=== PATIENT | male | born 1985 | race Caucasian/White ===

== ENCOUNTER 2016-10-15 16:00 | Outpatient (RCR) | payer OTHER ==
[~2016-10-15 16:00] MED LIST: ADVI200C5 PO; ALBU17IN2 INH; AUGM875T27 PO; CATA0.1T PO; OCEA0.654; TRAZ300T2 PO; WELLTAB40 PO
== END 2016-11-05 | disposition home or self-care (01) ==
LOC: M OUTALCOH 16:00
PROVIDERS: ATTEND Psychiatry & Neurology Psychiatry
DX: F11.20 Opioid dependence, uncomplicated (principal); F12.20 Cannabis dependence, uncomplicated; F17.200 Nicotine dependence, unspecified, uncomplicated

== ENCOUNTER 2020-07-02 11:45 | Emergency (ER) | payer MEDICAID, OTHER, SELFPAY ==
[~2020-07-02] VITALS: Ht 182.9 cm; Wt 90.6 kg
[2020-07-02 11:45] VITALS: BP 113/73
[~2020-07-02 11:45] MED LIST changes: -AUGM875T27 PO; +AUGM875T28 PO
[2020-07-02] MEDS ORDERED: IBUP-1022 PO (12:18)
[2020-07-02] MEDS ORDERED: BACT800T5 PO (12:18)
== END 2020-07-02 12:39 | disposition home or self-care (01) ==
LOC: M ED 11:45
DX: L02.91 Cutaneous abscess, unspecified (principal); F17.200 Nicotine dependence, unspecified, uncomplicated; Z79.51 Long term (current) use of inhaled steroids; Z79.899 Other long term (current) drug therapy